=== PATIENT | male | born 1955 | race Caucasian/White ===

== ENCOUNTER 2019-06-28 04:28 | Emergency (ER) | payer BC ==
[~2019-06-28] VITALS: Ht 175.3 cm; Wt 89.3 kg
--- NOTE | 2019-06-28 04:55 | NUR ---
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 PT STATES HE ATE THE MEAT AROUND 1300 YESTERDAY AND THOUGHT THAT HE COULD GET IT OUT ON HIS OWN, HOWEVER HAS BEEN UNSUCCESSFUL. HE IS ABLE TO SWALLOW SECRETIONS BUT IS NOT ABLE TO DRINK ANY FLUIDS. HE REPORTS A HISTORY OF ESOPHAGEAL SPASMS AND HAS HAD THIS HAPPEN IN THE PAST. HE DENIES ANY OTHER MEDICAL HISTORY, TAKES ACID REFLUX MEDICATIONS DAILY AND NKDA. AWAITING PHYSICIAN TO ASSESS PATIENT. ALL MONITORING EQUIPMENT APPLIED. PT IN NO DISTRESS AT THIS TIME, WILL CONTINUE TO MONITOR.
--- NOTE | 2019-06-28 05:10 | NUR ---
DR. IRVIN AT BEDSIDE EVALUATING PT.
[2019-06-28] MEDS ORDERED: SODIUM CHLORIDE 0.9% 1,000 ML IV ONE (05:15)
[2019-06-28] MEDS ORDERED: SODIUM CHLORIDE FLUSH 10ML SYR IVF ONE (05:30)
--- NOTE | 2019-06-28 05:40 | NUR ---
PT UNABLE TO TOLERATE PO FLUIDS. IV ESTABLISHED, AWAITING GI CONSULT AT THIS TIME. WILL CONTINUE TO MONITOR.
--- NOTE | 2019-06-28 05:45 | NUR ---
ERP WAITING UNTIL DAYSHIFT TO CALL GI/ENDO TEAM. PT AWARE, DENIES ANY NEEDS OR HAS NO CONCERNS AT THIS TIME.
--- NOTE | 2019-06-28 06:27 | NUR ---
PT VOMITING SMALL AMOUNTS OF FLUID, SMALL PIECE OF MEAT. STATES HE STILL FEELS THOUGH THERE IS AN OBSTRUCTION.
--- NOTE | 2019-06-28 07:00 | NUR ---
REPORT RECEIVED, CARE ASSUMED. PT SITTING UP ON [place]. NO ACUTE DISTRESS NOTED. FAMILY AT BEDSIDE. AWAITING GI.
--- NOTE | 2019-06-28 07:58 | NUR ---
PT GETTING ANXIOUS ABOUT "WHEN GI DOCTOR WILL GET HERE" DR IRVIN AT BEDSIDE TO DISCUSS WITH PT AND PTS . PT SR PER MONITOR. NO ACUTE DISTRESS NOTED.
--- NOTE | 2019-06-28 09:00 | NUR ---
NO CHANGE IN PT CONDITION NOTED. PT PROVIDED A PILLOW. DECLINED BLANKET. SR PER MONITOR. AWARE OF CONT TO WAIT FOR GI ARRIVAL. PT AWARE OF EGD PROCEDURE. DR IRVIN TO DISCUSS RISKS AND BENEFITS. NO NEEDS EXPRESSED AT THIS TIME.
--- NOTE | 2019-06-28 10:10 | NUR ---
NO CHANGE IN PT CONDITION NOTED. PT AND PTS AWARE OF CONT TO WAIT FOR GI ARRIVAL. NO NEEDS EXPRESSED AT THIS TIME.
--- NOTE | 2019-06-28 11:16 | NUR ---
PT CONT TO EXPRESS NO NEEDS AT THIS TIME. CONT TO WAIT FOR GI.
[2019-06-28] MEDS ORDERED: PROPOFOL 10 MG/ML, 20ML IVPush ONE ×2 (11:30→12:30)
--- NOTE | 2019-06-28 11:34 | NUR ---
machine spring former note: Dr. Ford at bedside to speak with pt.
[2019-06-28] MEDS ORDERED: PROPOFOL 10 MG/ML, 20ML ONE (11:52)
--- NOTE | 2019-06-28 12:46 | NUR ---
PT FULLY AWAKE, TAKING PO FLUIDS WITHOUT DIFFICULTY. CONT SR PER MONITOR. PT'S AT BEDSIDE. AWARE OF CONT TO MONITOR AND WILL BE DC'D. UNDERSTANDING VERBALIZED. SEE PROCEDURAL SEDATION FLOW SHEET FOR FURTHER INFORMATION .
[2019-06-28 13:41] VITALS: BP 170/90
--- NOTE | 2019-06-28 13:42 | NUR ---
Patient/Caregiver given discharge instructions and they have confirmed that they understand the instructions. Patient ambulatory with steady gait.
== END 2019-06-28 13:43 | disposition home or self-care (01) ==
LOC: ED 05:32
DX: T18.128A Food in esophagus causing other injury, initial encounter (principal); K21.9 Gastro-esophageal reflux disease without esophagitis; G43.909 Migraine, unspecified, not intractable, without status migrainosus; R11.2 Nausea with vomiting, unspecified; X58.XXXA Exposure to other specified factors, initial encounter; Y93.89 Activity, other specified; Y92.89 Other specified places as the place of occurrence of the external cause; Y99.8 Other external cause status
CPT/HCPCS: 43247; 88305; 96360; 99285; J2704; J7030